=== PATIENT | female | born 1955 | race Caucasian/White ===

== ENCOUNTER 2017-08-25 10:50 | Inpatient (IN) | payer BC ==
[2017-08-25] MEDS ORDERED: Meropenem 2 GM, Admixture Fee 1 EACH in Sodium Chloride 0.9% 100 ML IVPB SCH (11:15)
[2017-08-25 11:17] LABS: #Eosinphils 0.1 thou/uL (0.0-0.7); #Lymphocytes 2.2 thou/uL (1.20-3.40); #Monocytes 1.1 thou/uL (0.11-0.59); #Neutrophils 15.6 thou/uL (1.40-6.50); %Basophils 0.2 % (0.0-1.0); %Eosinophils 0.4 % (0.0-10.0); %Lymphocytes 11.6 % (21.0-51.0); %Neutrophils 81.8 % (42.0-75.0); Hemoglobin 14.1 g/dL (12.0-16.0); Mean Corpuscular HGB CONC 35.1 g/dL (32.0-36.0); Mean Corpuscular Hemoglobin 32.7 pg (27.0-31.0); Mean Corpuscular Volume 93.2 fl (81.0-99.0); Mean Platelet Volume 7.5 fL (7.4-10.4); Platelet Count 385 thou/uL (130-400); RBC Distribution Width 11.4 % (11.5-14.5); Red Blood Cell (RBC) Count 4.31 mill/uL (4.20-5.40); White Blood Cell (WBC) Count 19.1 thou/uL (4.8-10.8)
[2017-08-25 11:35] LABS: Bilirubin Negative (Negative); Blood, Urine Trace (Negative); Clarity CLEAR (Clear); Glucose, Urine (Dipstick) Negative (Negative); Leukocyte Negative (Negative); Nitrite Negative (Negative); Protein, Urine (Dipstick) Negative (Neg-Trace); pH, Urine 6.5 (5.0-9.0)
[2017-08-25 11:36] LABS: Pathc Cast-AUWi Flag 0.58 (0-2.49)
[2017-08-25 11:37] LABS: Specific Gravity, Urine Greater than 1.060 (1.002-1.036)
[2017-08-25 11:47] LABS: Bacteria/HPF None Seen HPF (None Seen); Hyaline Casts/LPF NONE SEEN LPF (0-3 Hyaline); RBC/HPF 0-3 HPF (0-3); Squamous Epithelial 0-3 HPF (0-3); WBC/HPF None Seen HPF (0-3)
[2017-08-25 11:48] LABS: ALT (SGPT) 40 U/L (8-55); AST (SGOT) 25 U/L (5-34); Alkaline Phosphatase 124 U/L (40-150); Anion Gap 19 mmol/L (10-20); BUN (Urea Nitrogen) 10 mg/dL (9.8-20.1); Bilirubin, Total 0.5 mg/dL (0.2-1.2); Calc. Creatinine Clearance 0 mL/min (70-130); Calcium 10.1 mg/dL (7.8-10.44); Carbon Dioxide 22 mmol/L (23-31); Chloride 92 mmol/L (98-107); Estimated GFR-MDRD 87; Globulin 4.2 g/dL (2.4-3.5); Glucose 91 mg/dL (80-115); Lipase 56 U/L (8-78); Potassium 3.8 mmol/L (3.5-5.1); Protein, Total 8.2 g/dL (6.0-8.3); Sodium 129 mmol/L (136-145)
--- NOTE | 2017-08-25 12:29 | HP ---
HISTORY OF PRESENT ILLNESS: A 62-year-old female who lives in [place], saw Dr. Escobar in [facility] for generalized abdominal pain. This started on 08/14/2017, visiting her daughter on 08/16/2017. CAT scan of abdomen and pelvis ordered, but insurance approval delayed CAT scan until this morning. Patient states she had generalized abdominal pain that lasted several days associated with nausea. Pain was worse with movement. Her bowel movements were altered. Her pain became localized to left lower quadrant. She had a CAT today at [facility] noting 4.5 to 5 cm diverticular abscess, not amenable to percutaneous drainage because of vicinity to iliac vessels and overlying colon. She has more inflammatory possible another fluid collection adjacent. Dr. Moore evaluated her. White coun t is 19, hemoglobin 14, sodium 129, chloride 92, carbon dioxide 22, BUN and creatinine are normal. I have personally reviewed her CAT scan with Radiology and this is not amenable to percutaneous draina ge. The patient reports having had a colonoscopy at age 49, but not since. ALLERGIES: None. ALCOHOL: Rarely. TOBACCO: None. MEDICATIONS: None. PAST SURGICAL HISTORY: Breast reduction in 2016, bilateral carpal tunnel release more than 20 years ago, colonoscopy at age 49. PAST MEDICAL HISTORY: Osteoporosis, neuropathy of both feet, chronic right shoulder pain, seen Dr. Selvin pino for management. REVIEW OF SYSTEMS: Ten point noncontributory. She did see a nuclear worker technician more than 10 years ago in [place] and workup was negative. No history of cardiac symptoms. Bowel habits are regular p rior to this. PHYSICAL EXAMINATION: VITAL SIGNS: Blood pressure 120/80, respiratory rate 16, heart rate 78. HEAD, EARS, EYES, NOSE, AND THROAT: Unremarkable. LUNGS: Clear to auscultation. CARDIAC: Regular rate and rhythm without murmur or gallop. ABDOMEN: Soft. Tenderness with guarding and rebound in left lower quadrant. EXTREMITIES: Unremarkable. No ankle edema. LABORATORY DATA: As above. ASSESSMENT AND PLAN: 1. Diverticular abscess, not amenable to percutaneous drainage. I have recommended exploratory lapa rotomy, colon resection, and probable colostomy. They could be reversed in approximately three month s. Risk of infection, bleeding, and reoperation discussed. Questions answered. 2. Osteoporosis. 3. Neuropathy feet. 4. Chronic right shoulder pain.
[2017-08-25] MEDS ORDERED: Ondansetron HCl/PF 4 MG/2 ML Vial ONE (12:46)
[2017-08-25] MEDS ORDERED: PROPOFOL 200 MG/20 ML VIAL ONE (12:46)
[2017-08-25] MEDS ORDERED: Glycopyrrolate 0.2 MG/ML 5 ML SYRINGE ONE (12:46)
[2017-08-25] MEDS ORDERED: Lidocaine 1% PF 5 ML VIAL ONE (12:46)
[2017-08-25] MEDS ORDERED: Ketorolac Tromethamine 30 MG/ML VIAL IVP SCH ×2 (13:45→23:59)
[2017-08-25] MEDS ORDERED: Scopolamine 1.5 mg/72 hour Patch TOP SCH ×2 (13:45→16:15)
[2017-08-25] MEDS ORDERED: Sodium Chloride 0.9% 1,000 ML IV SCH (13:45)
[2017-08-25] MEDS ORDERED: Acetaminophen 1,000 MG in Premix Bag 1 BAG IVPB SCH ×2 (13:45→16:15)
[2017-08-25 14:59] VITALS: BMI 32.8
[2017-08-25] MEDS ORDERED: Promethazine HCl 25 MG/ML VIAL IM PRN ×3 (15:22→18:58)
[2017-08-25] MEDS ORDERED: Promethazine HCl 25 MG/ML VIAL SLOW IVP PRN ×2 (15:22→17:59)
[2017-08-25] MEDS ORDERED: Ondansetron HCl/PF 4 MG/2 ML Vial IVP PRN ×2 (15:22→17:59)
[2017-08-25] MEDS ORDERED: Scopolamine 1.5 mg/72 hour Patch ONE (15:45)
[2017-08-25] MEDS ORDERED: Ketorolac Tromethamine 30 MG/ML VIAL ONE (15:45)
[2017-08-25] MEDS ORDERED: Fentanyl 100 MCG/2 ML VIAL ONE ×3 (16:05→18:51)
[2017-08-25] MEDS ORDERED: Bupivacaine PF 0.5% 30 ML VIAL ONE (16:07)
[2017-08-25] MEDS ORDERED: Sodium Chloride 0.9% 10 ML ONE (16:09)
[2017-08-25] MEDS ORDERED: Magnesium 2 GM/NS 0.9% 100 ML 2 GM in Premix Bag 1 BAG IVPB SCH (16:15)
[2017-08-25] MEDS: Sodium Chloride 0.9% 1,000 ML IV SCH (18:18)
[2017-08-25] MEDS ORDERED: Dextrose 5% in Water 1,000 ML IV PRN (18:18)
[2017-08-25] MEDS ORDERED: Dextrose 50% Abboject 50 ML SYRINGE SLOW IVP PRN (18:18)
[2017-08-25] MEDS ORDERED: diphenhydrAMINE 50 MG/ML VIAL IM/IV PRN (18:58)
[2017-08-25] MEDS ORDERED: Morphine CADD 1 MG/ML CADD IV PRN (18:58)
[2017-08-25] MEDS ORDERED: Naloxone HCl 0.4 mg/ml Vial IV PRN (18:58)
[2017-08-25] MEDS ORDERED: diphenhydrAMINE 25 MG CAP PO PRN (18:58)
--- NOTE | 2017-08-25 19:19 | RAD ---
PORTABLE CHEST: 08/25/17 HISTORY: Central line placement. No comparison. Central line via the left subclavian vein has tip overlying the SVC/right atrium. Lung de jesus appear clear with no infiltrate. No pneumothorax or effusion. Heart size is mildly prominent. IMPRESSION: No evidence of acute abnormality. POS: [facility]
[2017-08-25] MEDS ORDERED: Promethazine HCl 25 MG/ML VIAL ONE (19:38)
[2017-08-25] MEDS: Acetaminophen 1,000 MG in Premix Bag 1 BAG IVPB SCH (21:07)
[2017-08-25] MEDS: Famotidine/PF 20 mg/2ml Vial SLOW IVP SCH (22:07)
[2017-08-25] MEDS: Enoxaparin Sodium 40 MG/0.4 ML SYRINGE SC SCH (22:08)
[2017-08-25] MEDS: Ketorolac Tromethamine 30 MG/ML VIAL IVP SCH (23:50)
[2017-08-25] MEDS: Piperacillin/Tazobactam 3.375 GM in Sodium Chloride 0.9% 100 ML IVPB SCH (23:59)
--- NOTE | 2017-08-26 01:06 | OP ---
PREOPERATIVE DIAGNOSIS: Diverticular abscess, not amenable to percutaneous drainage. POSTOPERATIVE DIAGNOSIS: Diverticular abscess, not amenable to percutaneous drainage. PROCEDURES: Laparotomy, sigmoid colon resection, colostomy, Azael's pouch marked with a 2-0 Prole ne. Left subclavian vein central line. SURGEON: Homer Navarro M.D. ANESTHESIA: General. ESTIMATED BLOOD LOSS: 100 mL. BLOOD TRANSFUSED: None. Seprafilm left at the end of the procedure, between the viscera and abdominal wall. PROCEDURE IN DETAIL: Patient was taken to the operating room where under general anesthesia in the s upine position, a left chest periclavicular area prepared with ChloraPrep, draped in routine fashion. Seldinger technique used to place a triple lumen catheter securing it with 3-0 silk suture. Steril e dressing applied. J-wire removed. Each port aspirated blood and flushed with saline solution. Abdomen was then prepared with ChloraPrep and draped in routine fashion. Periumbilical and infraumbi lical incision made and carried down to skin and subcutaneous tissue, midline fascia and abdominal ca vity sharply. There was a diverticular abscess, as the left colon and sigmoid colon was mobilized. Ureter identified and kept free of harm. Inflammatory adherence between the sigmoid colon and the ut erus and left tube was appreciated. This was gently taken down draining a diverticular abscess with purulent material. It was irrigated. Left ureter identified, dissected free, as the mesentery of th e left colon was mobilized. The sigmoid colon proximally was divided with a DARLENE-75 stapler and mesen benjamin divided between clamps using 2-0 silk ties and LigaSure, dissecting it free down to the lower si gmoid colon, which was divided with a contour stapler and staple line marked with a 2-0 Prolene. Sig moid colon submitted to pathology. Hemostasis noted. Abdominal cavity irrigated and irrigant evacua sailaja. As sponge, needle, and instrument counts were correct, a circular defect of skin made in left l ower quadrant and the skin and subcutaneous tissue excised, anterior rectus sheath cruciate incision made, and a rectus muscle split and posterior peritoneum opened and dilated 2 fingerbreadths and the end of the colon brought out. The left colon had been dissected free up towards the splenic flexure without geeta dissection of the splenic flexure. Then, as sponge, instrument, and needle counts were correct and abdominal cavity irrigated, fascia approximated with continuous suture of #1 PDS. Skin and subcutaneous tissues irrigated copiously. Skin approximated loosely with micah and Telfa sue applied. Prevena applied. Colostomy maturation completed with 3-0 Vicryl suture and colostomy appl iance secured. Patient tolerated the procedure well. Seprafilm had been placed as described.
[2017-08-26 04:39] LABS: Anion Gap 16 mmol/L (10-20); BUN (Urea Nitrogen) 9 mg/dL (9.8-20.1); Calc. Creatinine Clearance 91 mL/min (70-130); Calcium 8.6 mg/dL (7.8-10.44); Carbon Dioxide 23 mmol/L (23-31); Chloride 101 mmol/L (98-107); Estimated GFR-MDRD 83; Glucose 98 mg/dL (80-115); Sodium 136 mmol/L (136-145)
[2017-08-26 06:01] LABS: Band 28 % (5-11); Hemoglobin 10.9 g/dL (12.0-16.0); Lymphocytes 11 % (21-51); MDiff Complete? YES; Mean Corpuscular HGB CONC 34.4 g/dL (32.0-36.0); Mean Corpuscular Hemoglobin 32.8 pg (27.0-31.0); Mean Corpuscular Volume 95.3 fl (81.0-99.0); Mean Platelet Volume 7.6 fL (7.4-10.4); Metamyelocyte 1 % (0-0); Monocytes 4 % (0-10); Neutrophil 56 % (42-75); PLT Morphology Comment Appears Adequate; Platelet Count 363 thou/uL (130-400); RBC Distribution Width 11.3 % (11.5-14.5); Red Blood Cell (RBC) Count 3.33 mill/uL (4.20-5.40); White Blood Cell (WBC) Count 19.7 thou/uL (4.8-10.8)
[2017-08-26] MEDS: Ketorolac Tromethamine 30 MG/ML VIAL IVP SCH ×3 (06:03→18:21)
[2017-08-26] MEDS: Acetaminophen 1,000 MG in Premix Bag 1 BAG IVPB SCH ×3 (06:06→18:23)
[2017-08-26] MEDS: Piperacillin/Tazobactam 3.375 GM in Sodium Chloride 0.9% 100 ML IVPB SCH ×3 (06:06→18:25)
[2017-08-26] MEDS ORDERED: Sodium Chloride 0.9% 1,000 ML IV SCH (09:29)
[2017-08-26] MEDS: Famotidine/PF 20 mg/2ml Vial SLOW IVP SCH ×2 (10:18→21:21)
--- NOTE | 2017-08-26 14:20 | PRG ---
DATE OF SERVICE: 08/26/2017 SUBJECTIVE: Postop day #1 sigmoid colectomy, Azael's pouch procedure for diverticular abscess, no t amenable to percutaneous CT-guided drainage. The patient is feeling well. Her pain is well contro lled with a RETAIL BRAND AMBASSADOR. OBJECTIVE: VITAL SIGNS: 98.1, 88, 120/78. LUNGS: Clear to auscultation. CARDIAC: Regular rate and rhythm without murmur, rub, or gallop. ABDOMEN: Soft, bowel sounds present, colostomy healthy. EXTREMITIES: Normal. LABORATORY DATA: This morning, her white count is 19 and hemoglobin 10. Basic metabolic profile is normal. Urine output is good. Urine is clear myriam. ASSESSMENT AND PLAN: Doing well. Advance to full liquids this evening. Decrease her IV fluids. Re move her Garcia. Began colostomy care teaching. Arrange home health for support once discharged. An ticipate discharge in the next 1-3 days pending GI function and diet tolerance. Continue RETAIL BRAND AMBASSADOR today a nd expect to discontinue RETAIL BRAND AMBASSADOR in the morning if she is tolerating her diet and switch her to oral anal gesics.
[2017-08-26] MEDS: Sodium Chloride 0.9% 1,000 ML IV SCH ×2 (20:28)
[2017-08-26] MEDS: Enoxaparin Sodium 40 MG/0.4 ML SYRINGE SC SCH (21:21)
[2017-08-27] MEDS: Acetaminophen 1,000 MG in Premix Bag 1 BAG IVPB SCH ×2 (00:46→05:15)
[2017-08-27] MEDS: Ketorolac Tromethamine 30 MG/ML VIAL IVP SCH ×2 (00:50→05:13)
[2017-08-27] MEDS: Piperacillin/Tazobactam 3.375 GM in Sodium Chloride 0.9% 100 ML IVPB SCH ×5 (00:50→23:43)
[2017-08-27] MEDS ORDERED: traMADol HCl 50 MG TAB PO PRN (07:51)
[2017-08-27] MEDS: Famotidine/PF 20 mg/2ml Vial SLOW IVP SCH ×2 (11:01→21:36)
[2017-08-27] MEDS: Acetaminophen 500 MG TAB PO PRN ×2 (14:30→23:44)
--- NOTE | 2017-08-27 18:33 | PDOC.GSPN ---
Surgery Progress Note: Subj - Subjective Narrative: Agent is feeling fairly well although she has not yet passed gas or had a bowel movement through her colostomy. She did have a little nausea this morning but this has resolved. She has been walking in the room and once out in the hallway. She walk twice yesterday. Abdomen is soft and nondistended with normal bowel sounds. Colostomy is healthy but the bag is empty. Incision is clean with minimal drainage. Alex are in place. Assessment/plan: Status post Crook's for complicated diverticulitis with large luis-colonic abscess. Doing well but awaiting return of bowel function. Tolerating liquid diet. Encouraged ambulation. Home on oral antibiotics once bowel function returns. Surgery Progress Note: Obj - Vital signs Vital signs: Vital Signs - Most Recent Temp Pulse Resp BP Pulse Ox 97.6 F 84 18 106/69 93 L 08/27/17 11:00 08/27/17 15:08 08/27/17 15:08 08/27/17 15:08 08/27/17 15:08 Surgery Progress Note: Results - Labs Result Diagrams: 08/26/17 03:59 08/26/17 03:59 Lab results: Laboratory Results - last 24 hr 08/27/17 08/27/17 11:06 15:10 POC Glucose 99 86
[2017-08-27] MEDS: Enoxaparin Sodium 40 MG/0.4 ML SYRINGE SC SCH (20:12)
[2017-08-27] MEDS: traMADol HCl 50 MG TAB PO PRN (20:12)
[2017-08-28] MEDS: traMADol HCl 50 MG TAB PO PRN ×4 (04:31→23:09)
[2017-08-28] MEDS: Piperacillin/Tazobactam 3.375 GM in Sodium Chloride 0.9% 100 ML IVPB SCH ×4 (05:52→23:09)
[2017-08-28] MEDS: Ondansetron HCl/PF 4 MG/2 ML Vial IVP PRN (05:52)
[2017-08-28] MEDS: Famotidine/PF 20 mg/2ml Vial SLOW IVP SCH ×2 (08:56→20:32)
[2017-08-28] MEDS: Ibuprofen 600 MG TAB PO PRN ×3 (09:18→23:09)
--- NOTE | 2017-08-28 16:37 | PRG ---
DATE OF SERVICE: 08/28/2017 ATTENDING PHYSICIAN: Dr. Mando Arias. SUBJECTIVE: Ms. Hoff is a 62-year-old female status post diverticular abscess requiring colosto my on 08/25. She has been doing well on the surgical floor. She did report some flatus into the ost norma bag last p.m. She has not started having any ostomy output. She is tolerating a clear liquid di et. Pain is well controlled. OBJECTIVE: VITAL SIGNS: Temperature 97.6, pulse 87, respirations 18, O2 sat 94% on room air, blood pressure 113 /69. GENERAL: Well-developed, well-nourished female, lying in bed, in no acute distress. HEENT: Atraumatic, normocephalic. PULMONARY: Bilateral breath sounds clear. No respiratory distress. CARDIOVASCULAR: Regular rate and rhythm. Heart sounds normal. ABDOMEN: Soft, nontender, nondistended. Midline dressing in place. Ostomy pink and appearing healt hy. EXTREMITIES: Moves all extremities well. Neurovascularly intact. NEUROLOGIC: GCS 15. Awake, alert and oriented x3. ASSESSMENT: 1. Status post Azael's for complicated diverticulitis with large pericolonic abscess. 2. Pain well controlled. 3. Has passed small amount of flatus into bags. 4. Tolerating clear liquid diet. PLAN: 1. Encouraged ambulation. 2. Continue clear liquid diet until bowel function returns. 3. Continue scheduled Tylenol. 4. Lovenox for DVT prophylaxis. 5. Pepcid for gastritis prophylaxis. 6. Continue Zosyn and transition to oral antibiotics prior to discharge home. The patient was seen and examined with Dr. Arias, who agrees with plan.
[2017-08-28] MEDS: Enoxaparin Sodium 40 MG/0.4 ML SYRINGE SC SCH (20:32)
[2017-08-29] MEDS: Piperacillin/Tazobactam 3.375 GM in Sodium Chloride 0.9% 100 ML IVPB SCH ×3 (05:05→17:40)
[2017-08-29] MEDS: traMADol HCl 50 MG TAB PO PRN ×3 (05:06→20:51)
[2017-08-29] MEDS: Ibuprofen 600 MG TAB PO PRN ×3 (05:06→20:51)
[2017-08-29] MEDS: Famotidine/PF 20 mg/2ml Vial SLOW IVP SCH ×2 (09:22→20:58)
--- NOTE | 2017-08-29 16:38 | PRG ---
DATE OF SERVICE: 08/29/2017 ATTENDING PHYSICIAN: Dr. Mando Arias. SUBJECTIVE: Ms. Hoff is a 62-year-old female status post diverticular abscess requiring colosto my on 08/25/2017. She has been doing well on the surgical floor. She has now had some ostomy output starting last p.m. She is tolerating a clear liquid diet. Pain is well controlled. OBJECTIVE: VITAL SIGNS: Temperature 97.7, pulse 76, respirations 16, O2 sat 93% on room air, blood pressure 107 /69. GENERAL: Well-developed, well-nourished female seen ambulatory on the surgical floor. HEENT: Atraumatic, normocephalic. PULMONARY: Bilateral breath sounds clear. No respiratory distress. CARDIOVASCULAR: Regular rate and rhythm. Heart sounds normal. ABDOMEN: Soft, nontender, nondistended. Midline dressing in place. Ostomy pink and appearing healt hy. EXTREMITIES: Moves all extremities well. Neurovascularly intact. NEUROLOGIC: GCS 15. Awake, alert, oriented x3. ASSESSMENT: 1. Status post Azael procedure for complicated diverticulitis with large pericolonic abscess. 2. Pain well controlled. 3. Has begun passing liquid stool into the ostomy bag. 4. Tolerating clear liquid diet. PLAN: 1. Advance diet to regular. 2. Continue scheduled Tylenol. 3. Continue to encourage ambulation. 4. Continue Zosyn and transition to oral antibiotics prior to discharge home. 5. Lovenox for DVT prophylaxis. 6. Pepcid for gastritis prophylaxis. The patient was seen and examined with Dr. Arias, who agrees with plan.
[2017-08-29] MEDS: Enoxaparin Sodium 40 MG/0.4 ML SYRINGE SC SCH (20:52)
[2017-08-30] MEDS: Piperacillin/Tazobactam 3.375 GM in Sodium Chloride 0.9% 100 ML IVPB SCH ×2 (00:12→05:41)
[2017-08-30] MEDS: Ibuprofen 600 MG TAB PO PRN (07:17)
[2017-08-30] MEDS: traMADol HCl 50 MG TAB PO PRN (07:17)
[2017-08-30] MEDS: Famotidine/PF 20 mg/2ml Vial SLOW IVP SCH (08:38)
[2017-08-30] MEDS: Ondansetron HCl/PF 4 MG/2 ML Vial IVP PRN (14:49)
[2017-08-30] MEDS ORDERED: metroNIDAZOLE 500 MG TAB PO SCH (15:00)
--- NOTE | 2017-08-30 15:15 | RAD ---
TWO VIEWS ABDOMEN: History: Nausea, vomiting. Patient with recent abdominal surgery. FINDINGS: Supine and upright views of the abdomen obtained. Surgical clips seen in the anterior abdominal wall. The abdominal gas pattern is nonobstructed. No evidence of obstruction or ileus seen. No dilated loop s of bowel seen. No definite evidence of free intraperitoneal air is seen. IMPRESSION: Post-operative changes. No definite evidence of bowel obstruction seen. POS: [facility]
[2017-08-30] MEDS: Ketorolac Tromethamine 30 MG/ML VIAL IVP PRN (16:56)
[2017-08-30] MEDS: metroNIDAZOLE 500 MG in Premix Bag 1 BAG IVPB SCH (16:57)
[2017-08-30] MEDS: Enoxaparin Sodium 40 MG/0.4 ML SYRINGE SC SCH (20:59)
[2017-08-30] MEDS: Docusate 100 MG CAP PO SCH (20:59)
[2017-08-30] MEDS: Famotidine 20 MG TAB PO SCH (20:59)
[2017-08-30] MEDS: Ciprofloxacin 500 MG TAB PO SCH (20:59)
[2017-08-31] MEDS: metroNIDAZOLE 500 MG in Premix Bag 1 BAG IVPB SCH ×4 (00:50→17:43)
[2017-08-31] MEDS: Ciprofloxacin 500 MG TAB PO SCH ×2 (06:48→20:02)
[2017-08-31 07:29] LABS: #Eosinphils 0.4 thou/uL (0.0-0.7); #Lymphocytes 2.1 thou/uL (1.20-3.40); #Monocytes 0.9 thou/uL (0.11-0.59); #Neutrophils 6.2 thou/uL (1.40-6.50); %Basophils 0.3 % (0.0-1.0); %Eosinophils 3.8 % (0.0-10.0); %Lymphocytes 21.6 % (21.0-51.0); %Monocytes 9.3 % (0.0-10.0); Mean Corpuscular HGB CONC 33.3 g/dL (32.0-36.0); Mean Corpuscular Hemoglobin 31.7 pg (27.0-31.0); Mean Corpuscular Volume 95.3 fl (81.0-99.0); Mean Platelet Volume 6.9 fL (7.4-10.4); Platelet Count 458 thou/uL (130-400); RBC Distribution Width 11.7 % (11.5-14.5); Red Blood Cell (RBC) Count 3.14 mill/uL (4.20-5.40); White Blood Cell (WBC) Count 9.5 thou/uL (4.8-10.8)
[2017-08-31 07:49] LABS: Anion Gap 13 mmol/L (10-20); BUN (Urea Nitrogen) 8 mg/dL (9.8-20.1); Calc. Creatinine Clearance 108 mL/min (70-130); Calcium 9.1 mg/dL (7.8-10.44); Carbon Dioxide 30 mmol/L (23-31); Chloride 97 mmol/L (98-107); Estimated GFR-MDRD Greater than 90; Glucose 94 mg/dL (80-115); Potassium 3.8 mmol/L (3.5-5.1); Sodium 136 mmol/L (136-145)
[2017-08-31] MEDS: Docusate 100 MG CAP PO SCH ×2 (08:43→20:02)
[2017-08-31] MEDS: Famotidine 20 MG TAB PO SCH ×2 (08:43→20:02)
[2017-08-31] MEDS: traMADol HCl 50 MG TAB PO PRN (11:38)
[2017-08-31] MEDS: Ketorolac Tromethamine 30 MG/ML VIAL IVP PRN ×2 (15:13→21:03)
--- NOTE | 2017-08-31 16:38 | PRG ---
DATE OF SERVICE: 08/31/2017 SUBJECTIVE: Wilda Hoff is doing well. She is tolerating her diet. She had episode of e mesis after taking Cipro, metronidazole yesterday, however, she is not repeated that. LUNGS: Clear to auscultation. CARDIAC: Regular rate and rhythm without murmur or gallop. ABDOMEN: Soft, nontender. Wound looks good. Wound VAC has been removed. EXTREMITIES: Unremarkable. ASSESSMENT AND PLAN: Recovering from Azael's procedure for perforated diverticular abscess with a bscess. I would anticipate that she would go home tomorrow on oral antibiotics. Probably, we will r emove her dressings, sutures, micah prior to discharge. She can leave the dressing off, wash with soap and water, bath or shower.
[2017-08-31] MEDS: Enoxaparin Sodium 40 MG/0.4 ML SYRINGE SC SCH (20:02)
[2017-09-01] MEDS: metroNIDAZOLE 500 MG in Premix Bag 1 BAG IVPB SCH ×2 (00:42→05:38)
[2017-09-01] MEDS: Ketorolac Tromethamine 30 MG/ML VIAL IVP PRN (03:08)
[2017-09-01] MEDS: Ciprofloxacin 500 MG TAB PO SCH (05:38)
[2017-09-01] MEDS: Docusate 100 MG CAP PO SCH (08:56)
[2017-09-01] MEDS: Famotidine 20 MG TAB PO SCH (08:56)
[2017-09-01] MEDS: traMADol HCl 50 MG TAB PO PRN (09:58)
[2017-09-01 11:59] VITALS: BP 137/87; TEMP 98.1
== END 2017-09-01 16:11 | disposition home or self-care (01) | DRG 330 ==
LOC: ERS 10:50 → SURG A 11:57
PROVIDERS: ADMIT Specialist; ATTEND Specialist
PROC: 0DTN0ZZ Resection of Sigmoid Colon, Open Approach (ICD-10-PCS; principal; 2017-08-25)
PROC: 0D1M0Z4 Bypass Descending Colon to Cutaneous, Open Approach (ICD-10-PCS; 2017-08-25)
PROC: 02HV33Z Insertion of Infusion Device into Superior Vena Cava, Percutaneous Approach (ICD-10-PCS; 2017-08-25)
DX: K57.20 Diverticulitis of large intestine with perforation and abscess without bleeding (principal); M81.0 Age-related osteoporosis without current pathological fracture; G62.9 Polyneuropathy, unspecified; G89.29 Other chronic pain; M25.511 Pain in right shoulder; R11.2 Nausea with vomiting, unspecified; Z79.899 Other long term (current) drug therapy
CPT/HCPCS: 36415; 36416; 71045; 74019; 74177; 80048; 80053; 81003; 81015; 83690; 85025; 88307; 96361; 96365; 96374; 96375; A4216; J0131; J1650; J1885; J2001; J2185; J2270; J2274; J2405; J2543; J2550; J2704; J3010; J3475; J7050; S0020; S0028

== ENCOUNTER 2017-09-19 10:06 | Emergency (ER) | payer BC ==
[2017-09-19 10:40] LABS: #Basophils 0.1 thou/uL (0.0-0.2); #Eosinphils 0.1 thou/uL (0.0-0.7); #Lymphocytes 1.7 thou/uL (1.20-3.40); #Monocytes 0.7 thou/uL (0.11-0.59); #Neutrophils 6.1 thou/uL (1.40-6.50); %Basophils 0.8 % (0.0-1.0); %Eosinophils 1.1 % (0.0-10.0); %Lymphocytes 19.3 % (21.0-51.0); %Monocytes 8.5 % (0.0-10.0); %Neutrophils 70.3 % (42.0-75.0); Hemoglobin 10.9 g/dL (12.0-16.0); Mean Corpuscular HGB CONC 34.8 g/dL (32.0-36.0); Mean Corpuscular Hemoglobin 32.6 pg (27.0-31.0); Mean Corpuscular Volume 93.7 fL (78.0-98.0); Mean Platelet Volume 7.3 fL (7.4-10.4); Platelet Count 339 thou/uL (130-400); RBC Distribution Width 12.5 % (11.5-14.5); Red Blood Cell (RBC) Count 3.34 mill/uL (4.20-5.40); White Blood Cell (WBC) Count 8.6 thou/uL (4.8-10.8)
[2017-09-19 10:46] LABS: INR-International Normal Ratio 1.1; PTT 31.6 SEC (22.9-36.1); Prothrombin Time 13.8 SEC (12.0-14.7)
[2017-09-19 10:56] LABS: ALT (SGPT) 51 U/L (8-55); AST (SGOT) 35 U/L (5-34); Albumin 3.7 g/dL (3.4-4.8); Alkaline Phosphatase 121 U/L (40-150); Anion Gap 14 mmol/L (10-20); BUN (Urea Nitrogen) 13 mg/dL (9.8-20.1); Bilirubin, Total 0.4 mg/dL (0.2-1.2); Calc. Creatinine Clearance 0 mL/min (70-130); Calcium 10.1 mg/dL (7.8-10.44); Carbon Dioxide 23 mmol/L (23-31); Chloride 100 mmol/L (98-107); Estimated GFR-MDRD 52; Globulin 3.7 g/dL (2.4-3.5); Glucose 134 mg/dL (80-115); Potassium 3.2 mmol/L (3.5-5.1); Protein, Total 7.4 g/dL (6.0-8.3); Sodium 134 mmol/L (136-145)
[2017-09-19] MEDS ORDERED: Potassium Chloride 20 MEQ TAB ONE (11:12)
[2017-09-19 11:46] LABS: Bilirubin Negative (Negative); Blood, Urine Negative (Negative); Clarity CLEAR (Clear); Glucose, Urine (Dipstick) Negative (Negative); Leukocyte Negative (Negative); Nitrite Negative (Negative); Protein, Urine (Dipstick) Negative (Neg-Trace); Specific Gravity, Urine 1.007 (1.002-1.036); Urobilinogen 0.2 mg/dL (0.2-1.0); pH, Urine 6.5 (5.0-9.0)
[2017-09-19] MEDS ORDERED: ISOVUE-370 76%-LOCM 1 ML ONE (12:55)
--- NOTE | 2017-09-19 13:39 | CT ---
ABDOMEN CT WITH CONTRAST PELVIC CT WITH CONTRATS: HISTORY: Evaluate for abscess. Evaluate for perforation. The patient had previous bowel surgery. COMPARISON: 08/25/17 at [facility]. FINDINGS: ABDOMEN CT: Small focus of atelectasis in the left lung base. Normal heart size. Descending thoracic aorta and abdominal aorta have normal caliber. No periaortic fat stranding. Portal vein is patent. Decompressed gallbladder likely due to a non-fasting state. Liver, spleen, and the pancreas have appropriate enhancement. Appropriate gallbladder enhancement. Slight heterogeneous enhancement of the kidneys. There is mild fullness of the right intra- and extr arenal collecting system. Correlate for possible pyelonephritis. No evidence of obstructive uropath y. No gastrohepatic, retrocrural, or periportal lymphadenopathy. No mesenteric mass or lymphadenopathy. There is complex fluid in the left lower quadrant and left he mipelvis. There is stranding of the adjacent mesentery. There is a mixed-attenuation focus in the l eft hemipelvis measuring 4.5 x 6.7 cm. Within this lesion, there is an area of attenuation coefficie nt measuring 67 Hounsfield units. Additional areas have an attenuation coefficient of 13 Hounsfield units. A complex, infected fluid collection is suspected. There may be possible decompression of th e collection in a cephalad direction as the superior left margin does not appear to be well encapsula sailaja. There is fluid tracking along into the left lower quadrant with a small focus of air. This flu id is adjacent to some small bowel loops. There is evidence of a left colectomy. There are divertic geoff in the colon. No diverticulitis. Normal-caliber appendix is identified. PELVIC CT: There is mass effect upon the uterus secondary to the aforementioned complex fluid collection. There is mild rightward deviation. The urinary bladder is unremarkable. IMPRESSION: 1. Complex, infected fluid collection in the left hemipelvis. 2. Heterogeneous enhancement of both kidneys. Correlate for pyelonephritis. 3. Mild fullness of the right intra- and extrarenal collecting system. POS: [facility]
--- NOTE | 2017-09-19 17:26 | HP ---
HISTORY OF PRESENT ILLNESS: Wilda Hoff presents to the emergency room complaining of low back pain, lower abdominal pain yesterday. She had some bloody discharge per rectum. Since that, h er lower back pain and abdominal pain is resolved. She was concerned about the rectal bleeding. She presented to the emergency room and in the emergency room, she was noted to have a white count of 8. 6, hemoglobin of 10.9, comprehensive metabolic profile was normal. Her hemoglobin was the same as it was when she was last discharged from the hospital. Hemoglobin was 10-10.9 on 08/31/2017 and 2017 respectfully. The patient presented with a diverticular abscess, not amenable to percutaneous drainage undergoing 0 08/25/2017, laparotomy, colon resection and evacuation of abscess and Azael's pouch. On this occasion, her CAT scan revealed fluid collection in her pelvis 4.5 x 6.7 cm. It is difficult to tell whether this would be accessible for percutaneous drainage. It was felt this could represen t an abscess. PHYSICAL EXAMINATION: GENERAL: The patient is seen in the emergency room, she is afebrile, heart rate is 74, blood pressur e 120/64, respiratory rate 18. LUNGS: Clear to auscultation. CARDIAC: Regular rate and rhythm without murmur or gallop. ABDOMEN: Soft, nontender. Midline wound well healed, no evidence of hernia. There is no abdominal tenderness. ASSESSMENT AND PLAN: Rectal bleeding from her Azael's pouch could represent diversion colitis, bu t could also represent spontaneous drainage erosion to her Crook's pouch of a pelvic fluid collecti on. She is asymptomatic, afebrile. Currently, I do not think she needs intravenous antibiotics. I have discussed with Dr. Tavares, would recommend discharge home. Follow up in my office in 48 hours and she will call me sooner should she have any problems. We will see her sooner. I think this will resolve spontaneously. I think the rectal bleeding was probably a consequence of the fluid collecti on whether this needs to be drained or not; I am not certain, but she clinically is not infected. He r white count is normal. She is afebrile. She is not having any pain. This fluid collection could have been there since after her laparotomy and may represent an old hematoma that may be spontaneousl y draining to the Azael's pouch. We will follow her clinically. Currently, we will not treat her with antibiotics because she had adverse effects with vaginal yeast infections for oral antibiotics and they make her sick. I am not sure they are indicated at this time.
== END 2017-09-19 14:18 | disposition home or self-care (01) ==
LOC: ERS 10:06
DX: K92.1 Melena (principal); R18.8 Other ascites; K21.9 Gastro-esophageal reflux disease without esophagitis
CPT/HCPCS: 36415; 74177; 80053; 81003; 85025; 85610; 85730; 86850; 86900; 86901

== ENCOUNTER 2017-09-27 08:57 | Outpatient (CLI) | payer BC ==
[2017-09-27] MEDS ORDERED: ISOVUE-370 76%-LOCM 1 ML ONE (12:51)
== END 2017-09-27 08:58 | disposition home or self-care (01) ==
LOC: BICCT 08:57
PROVIDERS: ATTEND Specialist
DX: R18.8 Other ascites (principal); K44.9 Diaphragmatic hernia without obstruction or gangrene
CPT/HCPCS: 74177

== ENCOUNTER 2017-11-29 14:58 | Outpatient (CLI) | payer BC ==
[~2017-11-29 14:58] MED LIST: ISOVUE-370 76%-LOCM 1 ML ONE
== END 2017-11-29 14:59 | disposition home or self-care (01) ==
LOC: BICCT 14:58
PROVIDERS: ATTEND Specialist
DX: R18.8 Other ascites (principal)
CPT/HCPCS: 74177; 82565

== ENCOUNTER 2017-12-03 13:30 | Inpatient (IN) | payer BC ==
--- NOTE | 2017-12-03 02:37 | HP ---
HISTORY OF PRESENT ILLNESS: Wilda Hoff is a 62-year-old female, presenting with colostomy reversal. She underwent colostomy, Azael's pouch for a partially obstructing diverticulitis as we ll as laparoscopic cholecystectomy on 09/01/2017. She had a CAT scan prior to this office visit to delon ross up with pelvic abscess in [facility] on 09/27/2017, it was normal, co lostomy status. The patient has seen Dr. Cole and colonoscopy, proctoscopy scheduled for 12/06/2017. Plan is for laparoscopic colostomy reversal, two days after that staying on liquids in the interim and taking oral antibiotics to complete a bowel prep. MEDICATIONS: Omeprazole for reflux and naproxen. PAST MEDICAL HISTORY: Diabetes mellitus history, currently Accu-Cheks 70 to 100, not on any medicati ons. She has had weight loss during her past illness, is not regain diabetes, neuropathy, GERD . PAST SURGICAL HISTORY: Carpal tunnel release, breast reduction, Azael's procedure, colostomies in 08/2017. FAMILY HISTORY: Heart disease, hypertension. REVIEW OF SYSTEMS: Ten point noncontributory. Cardiac asymptomatic. TOBACCO: None. ALCOHOL: None. PHYSICAL EXAMINATION: VITAL SIGNS: 154 pounds, 69 inches, 153/71, 70. HEAD, EYES, EARS, NOSE, AND THROAT: Unremarkable. LUNGS: Clear to auscultation. CARDIAC: Regular rate and rhythm without murmur or gallop. ABDOMEN: Soft, nontender, midline wound well healed, colostomy, healthy. ASSESSMENT AND PLAN: Colostomy status. PLAN: Laparoscopic colostomy reversal. Risk of infection, bleeding, reoperation, anastomotic leakag e, possibly open procedure were discussed. Questions answered. Plan general anesthesia, tap block. Risks and benefits discussed.
[2017-12-03 14:19] VITALS: BMI 31.3
[2017-12-08] MEDS ORDERED: Lidocaine 1% (PF) 30 ML VIAL ONE (08:58)
[2017-12-08] MEDS ORDERED: Fentanyl 100 MCG/2 ML VIAL ONE ×4 (08:58→13:26)
[2017-12-08] MEDS ORDERED: Midazolam HCl 2 mg/2 ml Vial ONE ×2 (08:58→09:05)
[2017-12-08] MEDS ORDERED: Dexamethasone 4 mg/ml Vial ONE (08:58)
[2017-12-08] MEDS ORDERED: Ketorolac Tromethamine 30 MG/ML VIAL ONE (09:11)
[2017-12-08] MEDS ORDERED: Meropenem 2 GM in Sodium Chloride 0.9% 100 ML IVPB ONE (09:15)
[2017-12-08] MEDS ORDERED: Bupivacaine/Epinephrine 0.25% 30 ML VIAL ONE (10:19)
[2017-12-08] MEDS ORDERED: Ondansetron HCl/PF 4 MG/2 ML Vial IVP PRN ×2 (11:08→13:50)
[2017-12-08] MEDS ORDERED: hydrALAZINE 20 MG/ML VIAL SLOW IVP PRN (11:08)
[2017-12-08] MEDS ORDERED: Morphine 4 MG/ML VIAL SLOW IVP PRN (11:08)
[2017-12-08] MEDS ORDERED: Ondansetron ODT 8 MG TAB PO PRN (11:14)
[2017-12-08] MEDS ORDERED: Ondansetron ODT 4 MG TAB PO PRN (11:14)
[2017-12-08] MEDS ORDERED: Ondansetron ODT 8 MG TAB SL PRN (11:14)
[2017-12-08] MEDS ORDERED: Promethazine HCl 25 MG/ML VIAL IM PRN (13:50)
[2017-12-08] MEDS ORDERED: Promethazine HCl 25 MG/ML VIAL SLOW IVP PRN (13:50)
[2017-12-08] MEDS ORDERED: HYDROmorphone 2 MG/ML VIAL SLOW IVP PRN (13:50)
--- NOTE | 2017-12-08 13:59 | OP ---
DATE OF PROCEDURE: 12/08/2017 PREOPERATIVE DIAGNOSES: 1. Previous pelvic abscess. 2. Colostomy. 3. Diverticulitis 4. Undesired colostomy. 5. Colostomy malfunction. POSTOPERATIVE DIAGNOSES: 1. Previous pelvic abscess. 2. Colostomy. 3. Diverticulitis 4. Undesired colostomy. 5. Colostomy malfunction. PROCEDURE: Laparoscopic converted to laparotomy, adhesiolysis, repair of small bowel serosal tear, c olostomy reversal with colorectal anastomosis, low pelvic 31 mm EA checked under water and no leakage . SURGEON: Dr. Homer Navarro ANESTHESIA: General. MIXER BLENDER: Tap block rectus sheath. ESTIMATED BLOOD LOSS: 50 mL. PROCEDURE IN DETAIL: The patient was taken to the operating room where under general anesthesia, tap block, abdomen prepared with ChloraPrep. Perineum, buttocks prepared with Betadine in the dorsal li thotomy position. Right lateral incision made and pneumoperitoneum to 15 mmHg obtained with the Urvashi ss needle, replacing it with a 5 port, video laparoscope inserted. Right lateral abdomen was free of adhesions. Mid lateral right abdomen incision made and a 5 port placed and right lower quadrant inc ision made laterally and a 12 port placed under laparoscopic visualization. Adhesiolysis carried out freeing small bowel adhesions from the midline. Attention was then turned to the colostomy where th ere was a parastomal hernia reduced freeing omental adhesions. These were freed. A small adhesiolys is carried out freeing small bowel adhesions from the pelvis. There was a dense adhesion into the pe lvis of at least 2-3 segments of small bowel that I could not tend to laparoscopically, thus a midlin e incision was made through the old incision infraumbilical to pubis, carried down skin and subcutane ous tissue, midline fascia and abdominal cavity sharply. Bookwalter retractor used for exposure. Ad hesiolysis carried out freeing terminal ileal adhesions from the pelvis. Serosal tears closed with i nterrupted Lembert sutures of 3-0 silk. Small bowel was run to and fro identifying a large and small bowel, adhesions were taken down and they were otherwise healthy. The colostomy was then taken down excised and skinned from around the colostomy and colostomy reduced in the abdominal cavity. It was adequate length to reach into the pelvis. Attention was then turned towards finding of the rectal s tump. Rectal stump was difficult to find. Presacral area incised in the midline and dissection grace ied out in the presacral area, identifying the rectum and dissection of the rectum from the uterus an teriorly was performed. Once this segment of rectum identified and dissected free upper rectum down to a healthy area and subcutaneous tissues cleared using cautery and LigaSure. At this point, a cont our stapler used to divide this and the rectal stump was submitted to pathology. The distal sigmoid colon had been divided and 31 mm EA anvil from the stapler placed and a pursestring suture of 2-0 Pro mo used to hold it in place. Gloves changed. Rectum was dilated to accommodate the 31 mm EA stapl er introduced, advanced toward the rectal stump and advancing the post-out the staple line under dire ct visualization and then this was connected to the proximal colon anvil and these were approximated with the torque fire range, taking care to orient the colon properly. This reached easily without te nsion. The stapler was approximated within the torque fire range and then fired, loosened and remove d with patent and intact donuts which were not submitted. Good hemostasis noted. The colorectal brigido stomosis inspected under water with proctoscope insufflation of the colorectum with air occluding the proximal colon, distending it, noting absence of any leak. Area irrigated. Omentum advanced into t he pelvis. Small bowel had been run several times and serosal tears closed as described. As sponge and needle counts were correct, the colostomy, posterior fascia closed with continuous suture of #1 P DS. Seprafilm placed between the omentum and abdominal wall in the midline and beneath the old colos amisha wound. As all counts were correct, midline fascia closed with continuous suture of #1 PDS. The old colostomy site and midline wounds irrigated. Irrigant evacuated. Subcutaneous tissues approxim ated with 3-0 Monocryl and skin approximated with subdermal 4-0 Monocryl and DermaGlue and sterile dr essings applied. The patient tolerated the procedure well.
[2017-12-08] MEDS ORDERED: Bupivacaine HCl 0.5%/Epinephrine 1:200,000/PF 30 ml Vial ONE (15:03)
[2017-12-08] MEDS: Sodium Chloride 0.9% 1,000 ML IV SCH ×2 (15:35→18:03)
[2017-12-08] MEDS: Ketorolac Tromethamine 30 MG/ML VIAL IVP SCH ×3 (15:36→23:03)
[2017-12-08] MEDS: Acetaminophen 1,000 MG in Premix Bag 1 BAG IVPB SCH ×3 (15:36→23:03)
[2017-12-08] MEDS ORDERED: PHENYLEPHRINE-NS 100 MCG/ML 10 ML SYRINGE ONE (15:42)
[2017-12-08] MEDS ORDERED: Dexamethasone 20 MG/5 ML VIAL ONE (15:42)
[2017-12-08] MEDS ORDERED: ePHEDrine/0.9% NaCl/PF SYRINGE 50 mg/10 ml ONE (15:42)
[2017-12-08] MEDS ORDERED: Glycopyrrolate 0.2 MG/ML 5 ML SYRINGE ONE (15:42)
[2017-12-08] MEDS ORDERED: Esmolol 100 MG/10 ML VIAL ONE (15:42)
[2017-12-08] MEDS ORDERED: Lidocaine 1% PF 5 ML VIAL ONE (15:42)
[2017-12-08] MEDS ORDERED: PROPOFOL 200 MG/20 ML VIAL ONE (15:42)
[2017-12-08] MEDS: Famotidine/PF 20 mg/2ml Vial SLOW IVP SCH (22:45)
[2017-12-08] MEDS: Famotidine 20 MG TAB PO SCH (22:45)
[2017-12-08] MEDS: Enoxaparin Sodium 40 MG/0.4 ML SYRINGE SC SCH (22:45)
[2017-12-09] MEDS: Sodium Chloride 0.9% 1,000 ML IV SCH ×2 (03:18→12:34)
[2017-12-09] MEDS: Acetaminophen 1,000 MG in Premix Bag 1 BAG IVPB SCH (05:13)
[2017-12-09] MEDS: Ketorolac Tromethamine 30 MG/ML VIAL IVP SCH ×2 (05:13→12:34)
[2017-12-09 05:59] LABS: #Basophils 0.1 thou/uL (0.0-0.2); #Lymphocytes 1.4 thou/uL (1.20-3.40); #Monocytes 0.6 thou/uL (0.11-0.59); #Neutrophils 13.1 thou/uL (1.40-6.50); %Basophils 0.5 % (0.0-1.0); %Eosinophils 0.1 % (0.0-10.0); %Lymphocytes 9.2 % (21.0-51.0); %Monocytes 3.7 % (0.0-10.0); %Neutrophils 86.6 % (42.0-75.0); Hemoglobin 11.8 g/dL (12.0-16.0); Mean Corpuscular HGB CONC 33.3 g/dL (32.0-36.0); Mean Corpuscular Hemoglobin 30.6 pg (27.0-31.0); Mean Corpuscular Volume 91.7 fL (78.0-98.0); Mean Platelet Volume 8.2 fL (7.4-10.4); Platelet Count 253 thou/uL (130-400); Red Blood Cell (RBC) Count 3.86 mill/uL (4.20-5.40); White Blood Cell (WBC) Count 15.2 thou/uL (4.8-10.8)
[2017-12-09 06:23] LABS: Anion Gap 14 mmol/L (10-20); BUN (Urea Nitrogen) 8 mg/dL (9.8-20.1); Calc. Creatinine Clearance 84 mL/min (70-130); Calcium 8.6 mg/dL (7.8-10.44); Carbon Dioxide 17 mmol/L (23-31); Chloride 107 mmol/L (98-107); Estimated GFR-MDRD 79; Glucose 144 mg/dL (80-115); Potassium 3.7 mmol/L (3.5-5.1); Sodium 134 mmol/L (136-145)
[2017-12-09] MEDS: Famotidine 20 MG TAB PO SCH ×2 (09:00→19:59)
[2017-12-09] MEDS ORDERED: Acetaminophen 500 MG TAB PO PRN (09:00)
[2017-12-09] MEDS ORDERED: traMADol HCl 50 MG TAB PO PRN ×3 (09:00→15:22)
[2017-12-09] MEDS: Famotidine/PF 20 mg/2ml Vial SLOW IVP SCH (09:01)
[2017-12-09] MEDS ORDERED: Ibuprofen 600 MG TAB PO PRN (15:22)
--- NOTE | 2017-12-09 18:05 | PRG ---
DATE OF SERVICE: 12/09/2017 SUBJECTIVE: The patient is doing well. She is tolerating liquids. Overall, she is doing well. She is voiding without her Garcia. OBJECTIVE: VITAL SIGNS: 98 degrees, 71, . LUNGS: Clear to auscultation. CARDIAC: Regular rate and rhythm without murmur or gallop. ABDOMEN: Soft. Bowel sounds present. Wounds look good. PLAN: To saline lock her. Increase diet slowly. Hopefully, she will be ready for discharge home to [place].
[2017-12-09] MEDS: Enoxaparin Sodium 40 MG/0.4 ML SYRINGE SC SCH (19:59)
[2017-12-10] MEDS ORDERED: diphenhydrAMINE 25 MG CAP PO PRN (07:01)
[2017-12-10] MEDS ORDERED: NAPROXEN PO PRN (07:01)
[2017-12-10] MEDS ORDERED: Acetaminophen 500 MG TAB PO PRN (07:01)
[2017-12-10] MEDS ORDERED: Calcium Carbonate 500 MG ChewTAB PO SCH (09:00)
[2017-12-10] MEDS ORDERED: Multivitamin W/ Minerals 1 TAB PO SCH (09:00)
[2017-12-10] MEDS: Famotidine 20 MG TAB PO SCH (09:13)
--- NOTE | 2017-12-10 10:20 | PRG ---
DATE OF SERVICE: 12/10/2017 SUBJECTIVE: Ms. Hoff is doing well two days post-colostomy reversal. She has tolerated diet. She is not having nausea or vomiting. OBJECTIVE: VITAL SIGNS: Temperature 98.2, 68 heart rate, 125/78. LABORATORY: No laboratories this morning. LUNGS: Clear to auscultation. CARDIAC: Regular rate and rhythm without murmur or gallop. ABDOMEN: Soft, nontender. Dressings on abdomen wound removed. Wounds look good. Slight amount of drainage as expected from old colostomy site. Pursestring closure. EXTREMITIES: Unremarkable. Overall the patient is doing well. She will be discharged home with Tylenol, Motrin and Ultram p.r.n . pain. She will follow up in my office in 2-3 weeks. No lifting over 25-30 pounds for 4 weeks. Di et and activity as tolerated.
[2017-12-10 11:53] VITALS: BP 129/79; TEMP 97.9
--- NOTE | 2017-12-10 13:08 | DIS ---
DATE OF ADMISSION: 12/08/2017 DATE OF DISCHARGE: 12/10/2017 DISCHARGE DIAGNOSES: Laparoscopic converted to open colostomy reversal 31 mm EEA stapler. DISCHARGE MEDICATIONS: Tylenol, ibuprofen and tramadol p.r.n. pain, tramadol #20, 2 refills. Follow up in my office is to 2-3 weeks. Diet and activity as tolerated. No lifting over 25 pounds. HISTORY: This is a 62-year-old female recently presented with perforated diverticulitis abscess requ iring colostomy, open incision. She developed an abscess postoperatively as an outpatient, although she had rectal drainage and no intervention was required. She was treated with oral antibiotics. Pr eoperative CAT scan revealed resolution of the abscess previously seen as an outpatient. Patient und erwent colonoscopy, removing some benign polyps and then kept on clear liquids. Admitted this hospit alization for general anesthesia, tap block for laparoscopic converted to open colostomy reversal. T he patient had some small bowel adhesions in the pelvis preventing a pure laparoscopic approach. Pos toperatively she did well, had minimal pain and discharged home with follow up in my office in 2-3 we eks. Diet and activity as tolerated. No lifting over 25 pounds for 6 weeks. Sent home with Ultram #25, two refills. Follow up in my office in 2-3 weeks. Dry dressing over the old colostomy site. P ursestring closure as needed for drainage, Band-Aid when drainage ceases or leave open, shower and ba the as needed. No lifting over 25 pounds for 6 weeks.
== END 2017-12-10 12:28 | disposition home or self-care (01) | DRG 336 ==
LOC: SURG A 12-08 08:18 → SJJU 12-08 15:28
PROVIDERS: ADMIT Specialist; ATTEND Specialist
PROC: 0DSN0ZZ Reposition Sigmoid Colon, Open Approach (ICD-10-PCS; principal; 2017-12-08)
PROC: 0DNW0ZZ Release Peritoneum, Open Approach (ICD-10-PCS; 2017-12-08)
DX: Z43.3 Encounter for attention to colostomy (principal); K57.80 Diverticulitis of intestine, part unspecified, with perforation and abscess without bleeding; K21.9 Gastro-esophageal reflux disease without esophagitis; E11.42 Type 2 diabetes mellitus with diabetic polyneuropathy; Z53.31 Laparoscopic surgical procedure converted to open procedure
CPT/HCPCS: 36416; 80048; 85025; 88307; J0131; J0670; J1100; J1650; J1885; J2001; J2185; J2250; J2405; J2704; J3010; J7050; S0028

== ENCOUNTER 2017-12-03 13:43 | Outpatient (CLI) | payer BC ==
[2017-12-03 15:14] LABS: #Basophils 0.1 thou/uL (0.0-0.2); #Eosinphils 0.2 thou/uL (0.0-0.7); #Lymphocytes 2.7 thou/uL (1.20-3.40); #Monocytes 0.5 thou/uL (0.11-0.59); #Neutrophils 6.5 thou/uL (1.40-6.50); %Basophils 0.7 % (0.0-1.0); %Lymphocytes 26.8 % (21.0-51.0); %Monocytes 5.5 % (0.0-10.0); Hemoglobin 14.2 g/dL (12.0-16.0); Mean Corpuscular HGB CONC 32.6 g/dL (32.0-36.0); Mean Corpuscular Hemoglobin 30.3 pg (27.0-31.0); Mean Corpuscular Volume 92.9 fL (78.0-98.0); Mean Platelet Volume 9.1 fL (7.4-10.4); Platelet Count 195 thou/uL (130-400); RBC Distribution Width 13.4 % (11.5-14.5)
[2017-12-03 15:35] LABS: Hemoglobin A1c 5.4 % (4.0-6.0)
[2017-12-03 15:42] LABS: ALT (SGPT) 14 U/L (8-55); AST (SGOT) 19 U/L (5-34); Albumin 4.6 g/dL (3.4-4.8); Alkaline Phosphatase 89 U/L (40-150); Anion Gap 15 mmol/L (10-20); BUN (Urea Nitrogen) 21 mg/dL (9.8-20.1); Bilirubin, Total 0.4 mg/dL (0.2-1.2); Calc. Creatinine Clearance 0 mL/min (70-130); Calcium 10.4 mg/dL (7.8-10.44); Carbon Dioxide 20 mmol/L (23-31); Chloride 105 mmol/L (98-107); Estimated GFR-MDRD 71; Globulin 3.7 g/dL (2.4-3.5); Glucose 90 mg/dL (80-115); Protein, Total 8.3 g/dL (6.0-8.3); Sodium 136 mmol/L (136-145)
--- NOTE | 2017-12-06 20:47 | EKG ---
Test Reason : Blood Pressure : / mmHG Vent. Rate : 070 BPM Atrial Rate : 070 BPM P-R Int : 140 ms QRS Dur : 068 ms QT Int : 392 ms P-R-T Axes : 033 022 070 degrees QTc Int : 423 ms Normal sinus rhythm Cannot rule out Anterior infarct , age undetermined Abnormal ECG No previous ECGs available Confirmed by YOVANY JACOBS (2) on 12/06/2017 8:47:02 PM Referred By: ADRIANNA Confirmed By:YOVANY JACOBS
== END 2017-12-03 13:44 | disposition home or self-care (01) ==
LOC: LABBT 13:43
PROVIDERS: ATTEND Specialist
DX: Z01.818 Encounter for other preprocedural examination (principal); N73.9 Female pelvic inflammatory disease, unspecified; K57.80 Diverticulitis of intestine, part unspecified, with perforation and abscess without bleeding; Z90.49 Acquired absence of other specified parts of digestive tract
CPT/HCPCS: 80053; 83036; 85025; 93005; 93010

== ENCOUNTER 2021-01-21 14:29 | Outpatient (CLI) | payer MEDICARE | END 2021-01-21 14:30 | disposition home or self-care (01) | LOC: BICMAMMO 14:29 | PROVIDERS: ATTEND Family Medicine | DX: M81.0 Age-related osteoporosis without current pathological fracture (principal) | CPT/HCPCS: 77080 ==

== ENCOUNTER 2022-04-30 14:03 | Emergency (ER) | payer OTHER, MEDICARE ==
[~2022-04-30 14:03] MED LIST changes: -ISOVUE-370 76%-LOCM 1 ML ONE; +Iopamidol-370 76% 500 ML 1 ML ONE
[2022-04-30 14:39] LABS: #Eosinphils 0.1 thou/uL (0.0-0.7); #Lymphocytes 2.3 thou/uL (1.20-3.40); #Monocytes 0.6 thou/uL (0.11-0.59); #Neutrophils 5.9 thou/uL (1.40-6.50); %Basophils 0.4 % (0.0-1.0); %Eosinophils 1.4 % (0.0-10.0); %Lymphocytes 25.7 % (21.0-51.0); %Neutrophils 65.6 % (42.0-75.0); Hemoglobin 13.5 g/dL (12.0-16.0); Mean Corpuscular HGB CONC 35.7 g/dL (32.0-36.0); Mean Corpuscular Hemoglobin 34.1 pg (27.0-31.0); Mean Corpuscular Volume 95.6 fl (78.0-98.0); Mean Platelet Volume 8.9 fL (7.4-10.4); Platelet Count 171 10x3/uL (130-400); RBC Distribution Width 11.7 % (11.5-14.5); Red Blood Cell (RBC) Count 3.95 mill/uL (4.20-5.40)
[2022-04-30] MEDS ORDERED: Boostrix 0.5 ML (Tdap) VIAL (>/=7 yrs of age) ONE (15:09)
[2022-04-30] MEDS ORDERED: Morphine 4 MG/ML VIAL ONE (15:10)
[2022-04-30] MEDS ORDERED: Bacitracin 1 PK ONE (16:32)
[2022-04-30 16:47] LABS: ALT (SGPT) 24 U/L (8-55); AST (SGOT) 21 U/L (5-34); Alkaline Phosphatase 87 U/L (40-110); Anion Gap 12 mmol/L (10-20); BUN (Urea Nitrogen) 14 mg/dL (9.8-20.1); Bilirubin, Total 0.3 mg/dL (0.2-1.2); Calc. Creatinine Clearance 0 mL/min (70-130); Calcium 8.8 mg/dL (7.8-10.44); Carbon Dioxide 21 mmol/L (23-31); Chloride 109 mmol/L (98-107); Estimated GFR 78; Glucose 103 mg/dL (80-115); Sodium 138 mmol/L (136-145)
== END 2022-04-30 17:26 | disposition home or self-care (01) ==
LOC: ERS 14:03
DX: S62.307A Unspecified fracture of fifth metacarpal bone, left hand, initial encounter for closed fracture (principal); S20.01XA Contusion of right breast, initial encounter; E11.40 Type 2 diabetes mellitus with diabetic neuropathy, unspecified; Z23 Encounter for immunization; V49.40XA Driver injured in collision with unspecified motor vehicles in traffic accident, initial encounter; Y92.410 Unspecified street and highway as the place of occurrence of the external cause
CPT/HCPCS: 29125; 36415; 70450; 71260; 72125; 74177; 80053; 84484; 85025; 90471; 90715; 93005; 96374; G0390; J2270

== ENCOUNTER 2023-04-16 09:35 | Outpatient (CLI) | payer MEDICARE | END 2023-04-16 09:36 | disposition home or self-care (01) | LOC: BICMAMMO 09:35 | PROVIDERS: ATTEND Family Medicine | DX: M81.0 Age-related osteoporosis without current pathological fracture (principal); M85.851 Other specified disorders of bone density and structure, right thigh; M85.852 Other specified disorders of bone density and structure, left thigh | CPT/HCPCS: 77080 ==

== ENCOUNTER 2024-01-14 09:29 | Outpatient (CLI) | payer MEDICARE | END 2024-01-14 09:30 | disposition home or self-care (01) | LOC: SCSMRI 09:29 | PROVIDERS: ATTEND Family Medicine | DX: M54.16 Radiculopathy, lumbar region (principal); M54.2 Cervicalgia; M48.02 Spinal stenosis, cervical region; M48.061 Spinal stenosis, lumbar region without neurogenic claudication; M48.07 Spinal stenosis, lumbosacral region; M25.80 Other specified joint disorders, unspecified joint | CPT/HCPCS: 72050; 72148 ==

== ENCOUNTER 2024-02-22 09:57 | Outpatient (CLI) | payer MEDICARE | END 2024-02-22 09:58 | disposition home or self-care (01) | LOC: BICMAMMO 09:57 | PROVIDERS: ATTEND Family Medicine | DX: R92.8 Other abnormal and inconclusive findings on diagnostic imaging of breast (principal); N63.21 Unspecified lump in the left breast, upper outer quadrant | CPT/HCPCS: 77065; G0279 ==

== ENCOUNTER 2024-04-13 09:00 | Outpatient (CLI) | payer MEDICARE | END 2024-04-13 09:01 | disposition home or self-care (01) | LOC: BICRAD 09:00 | PROVIDERS: ATTEND Nurse Practitioner Family | DX: M25.511 Pain in right shoulder (principal); M54.2 Cervicalgia; M19.011 Primary osteoarthritis, right shoulder; M47.812 Spondylosis without myelopathy or radiculopathy, cervical region | CPT/HCPCS: 72050 ==

== ENCOUNTER 2024-04-21 13:09 | Outpatient (CLI) | payer MEDICARE ==
[2024-04-21] MEDS ORDERED: Iopamidol 370 76% 100 ML VIAL ONE (14:54)
== END 2024-04-21 13:10 | disposition home or self-care (01) ==
LOC: CT 13:09
PROVIDERS: ATTEND Nurse Practitioner Family
DX: R91.8 Other nonspecific abnormal finding of lung field (principal)
CPT/HCPCS: 36415; 71260; 82565; Q9967